=== PATIENT | male | born 1975 ===

== ENCOUNTER 2018-10-11 22:38 | Emergency (ER) | payer OTHER, SELFPAY ==
[2018-10-11 22:47] VITALS: BMI 24.4
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
[2018-10-12 02:21] VITALS: BP 115/75; PULSE 67; RESP 18; TEMP 98.4
[2018-10-12 02:23] VITALS: O2SAT 97
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
== END 2018-10-12 02:33 | disposition home or self-care (01) ==
LOC: C.ER 22:38
DX: S13.4XXA Sprain of ligaments of cervical spine, initial encounter (principal); V49.50XA Passenger injured in collision with unspecified motor vehicles in traffic accident, initial encounter; Y92.410 Unspecified street and highway as the place of occurrence of the external cause